=== PATIENT | male | born 1955 | race Caucasian/White ===

== ENCOUNTER 2019-11-06 09:33 | Day surgery (SDC) | payer OTHER ==
[~2019-11-06 09:33] MED LIST: Tobramycin 0.3% Ophth Drops 5 ML Bottle EYELF ONE
[2019-11-06] MEDS ORDERED: Dilation Soln 1 EA EACH EYELF ONE (09:45)
[2019-11-06] MEDS ORDERED: Phenylephrine 10% Ophth Soln 5 ML Bot EYELF ONE (09:45)
[2019-11-06] MEDS ORDERED: Tobramycin 0.3% Ophth Drops 5 ML Bottle EYELF ONE (09:45)
[2019-11-06] MEDS ORDERED: Moxifloxacin 0.5% Ophth Soln 3 ML Bottle EYELF ONE (09:45)
[2019-11-06] MEDS ORDERED: Timolol Maleate 0.5% Ophth Soln 5 ML Bottle EYELF ONE (09:45)
[2019-11-06] MEDS ORDERED: Ondansetron 4 MG/2 ML SDV IVPUSH PRN (09:45)
[2019-11-06] MEDS ORDERED: Tropicamide 1% Ophth Soln 15 ML Bottle EYELF ONE (09:45)
[2019-11-06] MEDS ORDERED: Sodium Chloride 0.9% 10 ML Syringe FLUSH PRN (09:45)
[2019-11-06] MEDS ORDERED: Proparacaine 0.5% Ophth Soln 15 ML Bottle EYELF ONE (09:45)
[2019-11-06] MEDS ORDERED: Povidone-Iodine 5% Sterile Ophth Soln 30 ML Bottle EYELF ONE (09:45)
[2019-11-06] MEDS ORDERED: Phenylephrine 10% Ophth Soln 5 ML Bot EYELF PRN (09:45)
[2019-11-06] MEDS ORDERED: Acetaminophen 325 MG Tab PO PRN (09:45)
[2019-11-06 10:09] VITALS: BP 125/88; PULSE 103
== END 2019-11-06 10:20 | disposition home or self-care (01) ==
LOC: DL.SDS 09:33
PROVIDERS: ATTEND Ophthalmology
DX: H26.9 Unspecified cataract (principal); R05 Cough; R00.0 Tachycardia, unspecified; R09.89 Other specified symptoms and signs involving the circulatory and respiratory systems; Z53.09 Procedure and treatment not carried out because of other contraindication

== ENCOUNTER 2019-11-13 09:41 | Day surgery (SDC) | payer OTHER ==
[~2019-11-13 09:41] MED LIST changes: +Acetaminophen 325 MG Tab PO PRN; +Dilation Soln 1 EA EACH EYELF ONE; +Moxifloxacin 0.5% Ophth Soln 3 ML Bottle EYELF ONE; +Ondansetron 4 MG/2 ML SDV IVPUSH PRN; +Phenylephrine 10% Ophth Soln 5 ML Bot EYELF ONE; +Phenylephrine 10% Ophth Soln 5 ML Bot EYELF PRN; +Povidone-Iodine 5% Sterile Ophth Soln 30 ML Bottle EYELF ONE; +Proparacaine 0.5% Ophth Soln 15 ML Bottle EYELF ONE; +Sodium Chloride 0.9% 10 ML Syringe FLUSH PRN; +Timolol Maleate 0.5% Ophth Soln 5 ML Bottle EYELF ONE; +Tropicamide 1% Ophth Soln 15 ML Bottle EYELF ONE
[2019-11-13] MEDS ORDERED: Dexamethasone 4 MG/ML SDV IV ONE (09:42)
[2019-11-13] MEDS ORDERED: Midazolam 1 MG/ML 2 ML SDV IV ONE (09:42)
[2019-11-13] MEDS ORDERED: Sodium Chloride 0.9% 10 ML Syringe IV ONE (09:42)
[2019-11-13] MEDS ORDERED: Tetracaine HCl/PF 0.5% 4 ML Bottle EYELF ONE (10:34)
[2019-11-13] MEDS ORDERED: Lidocaine 1% 30 ML SDV ONE (10:34)
[2019-11-13] MEDS ORDERED: Diclofenac Sodium 0.1% Ophth Soln 5 ML Bottle EYELF ONE (10:34)
[2019-11-13] MEDS ORDERED: Povidone-Iodine 5% Sterile Ophth Soln 30 ML Bottle EYELF ONE (10:34)
[2019-11-13] MEDS ORDERED: Apraclonidine 0.5% Ophth Soln 5 ML Bot EYELF ONE (10:34)
[2019-11-13] MEDS ORDERED: Dexamethasone/Neomycin/Polymyxin B Ophth Oint 3.5 GM Tube EYELF ONE (10:35)
[2019-11-13] MEDS ORDERED: Chondroitin Sulfate/Hyaluronate Sodium Ophth Inj 0.75 ML Syringe EYELF ONE (10:35)
[2019-11-13] MEDS ORDERED: Vancomycin 500 MG SDV EYELF ONE (10:35)
[2019-11-13] MEDS ORDERED: Balanced Salt Solution Ophth Irrig 500 ML Bottle IOCULAR ONE (10:35)
[2019-11-13 11:43] VITALS: BP 145/94; PULSE 84
--- NOTE | 2019-11-13 14:15 | OR ---
DATE: 11/13/2019 PREOPERATIVE DIAGNOSIS: Visually significant mixed cataract, left eye. POSTOPERATIVE DIAGNOSIS: Visually significant mixed cataract, left eye. PROCEDURE: Extracapsular cataract extraction with intraocular lens implant, left eye. ANESTHESIA: Topical/local MAC. COMPLICATIONS: None. INDICATION: Mr. Mitchell was seen in the clinic. He is unhappy with his vision, noticing a slow progressive change. His examination revealed visually significant mixed cataract. I explained options, offered cataract surgery, and I explained risks including, but not limited to, infection, retinal detachment, loss of vision, need for additional surgery, and risks associated with anesthesia. We discussed implant options. He has requested a monofocal implant. OPERATIVE DESCRIPTION: After informed consent was obtained and the risks, benefits, and alternatives were explained, the patient was brought to the operative suite and topical anesthesia was administered. The patient was then prepped and draped in the sterile fashion and attention was placed on the left eye. A sterile lid speculum was placed into the left eye to allow operative exposure. A full-thickness paracentesis was made in the temporal portion of the operative eye. Preservative-free lidocaine 0.1 mL was injected into the anterior chamber followed by viscoelastic. A full-thickness corneal incision was then made into the anterior chamber. A bent needle cystotome was used to create a small fabiola in the anterior capsule. The capsulorrhexis forceps was then used to create a 360-degree curvilinear capsulorrhexis. The nucleus was then removed using a phacoemulsification handpiece and the remaining cortical material was then removed with irrigation and aspiration handpiece. Following removal of the cortical material, the capsular bag was then inspected and noted to be free of any holes or tears. Viscoelastic was then injected into the capsular bag and the intraocular lens was inserted into the capsular bag. The viscoelastic material was then removed from both the anterior and posterior chambers and from behind the IOL. The lens and capsular bag were then reinspected. The IOL was well centered and the capsular bag intact. The wound and paracentesis sites were inspected and hydrated with balanced saline solution. Both were found to be self- sealing. The intraocular pressure was assessed digitally and found to be within normal range. A good red reflex was noted at the completion of the procedure. No complications occurred during the operation. At the completion of the procedure, Maxitrol, Voltaren, and Iopidine drops were placed into the operative eye. A sterile eye shield was placed over the operative eye and the patient was transported to the postoperative recovery area having tolerated the procedure well. Postoperative instructions were given along with a postoperative appointment. The patient was advised to call with any questions or concerns. [facility] /[id number]
== END 2019-11-13 10:45 | disposition home or self-care (01) ==
LOC: DL.SDS 09:41
PROVIDERS: ATTEND Ophthalmology
DX: H25.812 Combined forms of age-related cataract, left eye (principal); I10 Essential (primary) hypertension; E78.5 Hyperlipidemia, unspecified; F17.210 Nicotine dependence, cigarettes, uncomplicated; D69.6 Thrombocytopenia, unspecified; Z88.1 Allergy status to other antibiotic agents; Z88.8 Allergy status to other drugs, medicaments and biological substances; Z79.899 Other long term (current) drug therapy; Z72.89 Other problems related to lifestyle
CPT/HCPCS: 00142; A9270-GY; J1100; J2001; J2250; J3370; V2632

== ENCOUNTER 2020-10-05 08:32 | Emergency (ER) | payer OTHER ==
[2020-10-05 08:52] VITALS: BP 173/98; PULSE 57
--- NOTE | 2020-10-05 09:34 | EDM.PDOC ---
ED HPI GENERAL MEDICAL PROBLEM - General Chief Complaint: General Stated Complaint: LOWER LEFT LUNG REMOVED, SEVERE PAIN IN AREA Time Seen by Provider: 10/05/20 08:50 Source of Information: Reports: Patient, Family (), RN, RN Notes Reviewed History Limitations: Reports: No Limitations - History of Present Illness INITIAL COMMENTS - FREE TEXT/NARRATIVE: Marga is a 65 y/o male who is POD 27 s/p left lower lung thoracotomy who presents to the ED via personal vehicle with for complaints of left lateral chest tenderness. 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 The patient states he is out of his narcotic medication and acetaminophen is not providing alleviation in pain. The patient's reports he has begun to smoke tobacco and drink large quantities of alcohol again. He denies fever, shaking chills, palpitations, shortness of breath, dyspepsia, abdominal pain, nausea, or vomiting. He states he contacted his cardiothoracic clinic this morning and was told to present to urgent care, however urgent care was full. Left Chest Pain Score (Numeric/FACES): 10 - Related Data Allergies Allergy/AdvReac Type Severity Reaction Status Date / Time levofloxacin [From Levaquin] Allergy Anaphylactic Verified 11/06/19 09:52 Shock atorvastatin [From Lipitor] AdvReac Other Verified 11/12/19 12:49 Home Meds: Home Meds Aspirin [Ecotrin EC] 81 mg PO DAILY 04/06/15 [History] Garlic 400 mg PO DAILY 04/06/15 [History] [place]-3/DHA/Epa/Fish Oil [Fish Oil Dr 500 mg Softgel] 1,000 mg PO DAILY 04/06/15 [History] Cholecalciferol (Vitamin D3) [Vitamin D3] 2,000 mg PO DAILY 11/04/19 [History] Multivitamin with Minerals [Multivitamins with Minerals] 1 tab PO DAILY 11/04/19 [History] Acetaminophen [Tylenol Extra Strength] 500 mg PO DAILY PRN 11/06/19 [History] C,E,Zinc,Copper 11/Ixmni4s/Lut [Ocuvite Adult 50 Plus Softgel] 2 each PO DAILY 11/12/19 [History] Budesonide/Formoterol [Symbicort 160-4.5 MCG] 2 puff PO BID 10/05/20 [History] Simvastatin 20 mg PO DAILY 10/05/20 [History] Past Medical History HEENT History: Reports: Cataract, Impaired Vision Other HEENT History: Wears glasses Cardiovascular History: Reports: High Cholesterol, Hypertension Respiratory History: Reports: SOB Other Respiratory History: SOB with excertion Gastrointestinal History: Reports: Chronic Constipation, Hemorrhoids, Other (See Below) Other Gastrointestinal History: HX OF ELEVATED LIVER ENZYMES Genitourinary History: Reports: Prostate Disorder 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: 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 Musculoskeletal History: Reports: Fracture Other Musculoskeletal History: fx great toes on both feet Neurological History: Reports: None Psychiatric History: Reports: None Endocrine/Metabolic History: Reports: Vitamin D Deficiency Hematologic History: Reports: None Immunologic History: Reports: None Oncologic (Cancer) History: Reports: Prostate Dermatologic History: Reports: Other (See Below) Other Dermatologic History: Peeling bleeding port wine stains - Infectious Disease History Infectious Disease History: Reports: Chicken Pox, Measles, Mumps - Past Surgical History HEENT Surgical History: Reports: None Cardiovascular Surgical History: Reports: None GI Surgical History: Reports: Colonoscopy Male Surgical History: Reports: Prostate Biopsy, Prostatectomy Neurological Surgical History: Reports: None Musculoskeletal Surgical History: Reports: None Social & Family History - Family History Family Medical History: No Pertinent Family History - Caffeine Use Caffeine Use: Reports: Coffee Other Caffeine Use: 1/2 caff coffee couple cups day - Living Situation & Occupation Occupation: Employed ED ROS GENERAL - Review of Systems Review Of Systems: Comprehensive ROS is negative, except as noted in HPI. ED EXAM, GENERAL - Physical Exam Exam: See Below Exam Limited By: No Limitations General Appearance: Alert, No Apparent Distress, Other (Dissheveled appearance) Eye Exam: Bilateral Eye: EOMI, Normal Inspection, PERRL (3mm) Ears: Normal External Exam, Hearing Grossly Normal Nose: Normal Inspection, Normal Mucosa, No Blood Throat/Mouth: Normal Inspection, Normal Oropharynx, Normal Voice, No Airway Compromise Head: Atraumatic, Normocephalic Neck: Normal Inspection, Supple, Non-Tender, Full Range of Motion Respiratory/Chest: No Respiratory Distress, No Accessory Muscle Use, Crackles (To left lower lobe), Other (Dressing in place to left, lateral chest removed by policy writer with closed healing of previous chest tube site; 6cm healed surgical incision to left lateral chest; 1cm healed chest tube incision to left lateral chest). No: Chest Non-Tender, Rales, Rhonchi, Wheezing, Stridor, Retractions Cardiovascular: Normal Peripheral Pulses, Regular Rate, Rhythm, No Edema, No Gallop, No JVD, No Murmur, No Rub Peripheral Pulses: 2+: Radial (L), Radial (R) GI/Abdominal: Normal Bowel Sounds, Soft, Non-Tender, No Distention, No Abnormal Bruit, No Mass, Pelvis Stable (Male) Exam: Deferred Rectal (Males) Exam: Deferred Back Exam: Normal Inspection, Full Range of Motion Extremities: Normal Inspection, Normal Range of Motion, Non-Tender, No Pedal Edema, Normal Capillary Refill Neurological: Alert, Oriented, CN II-XII Intact, Normal Cognition, Normal Gait, Normal Reflexes, No Motor/Sensory Deficits Psychiatric: Normal Affect, Normal Mood Skin Exam: Warm, Dry, Intact, Normal Color, No Rash, Wound/Incision (See above). No: Cyanosis, Ecchymosis, Erythema, Jaundice, Mottled, Pallor, Petechiae Lymphatic: No Adenopathy Course - Vital Signs Last Recorded V/S: Last Vital Signs Temp 97.2 F 10/05/20 08:46 Pulse 57 L 10/05/20 08:46 Resp 14 10/05/20 08:46 BP 173/98 H 10/05/20 08:46 Pulse Ox 96 10/05/20 08:46 - Orders/Labs/Meds Labs: Laboratory Tests 10/05/20 10/05/20 10/05/20 Range/Units 08:56 09:12 09:12 WBC 8.0 (5.0-10.0) 10^3/uL RBC 3.75 L (4.6-6.2) 10^6/uL Hgb 12.5 L (14.0-18.0) g/dL Hct 38.8 L (40.0-54.0) % MCV 103.5 H (80-100) fL MCH 33.3 (27.0-34.0) pg MCHC 32.2 L (33.0-35.0) g/dL Plt Count 256 (150-450) 10^3/uL Neut % (Auto) 69.7 (42.2-75.2) % Lymph % (Auto) 16.8 L (20.5-50.1) % [place] % (Auto) 9.8 H (2-8) % Eos % (Auto) 1.9 (1.0-3.0) % Baso % (Auto) 1.8 H (0.0-1.0) % Add Manual Diff Yes Neutrophils % (Manual) 63 (42-75) % Band Neutrophils % 5 % Lymphocytes % (Manual) 19 L (20-50) % Monocytes % (Manual) 9 H (2-8) % Eosinophils % (Manual) 3 (1-3) % Basophils % (Manual) 1 Sodium 146 H (136-145) mmol/L Potassium 4.5 (3.5-5.1) mmol/L Chloride 106 (98-107) mmol/L Carbon Dioxide 28 (21-32) mmol/L Anion Gap 16.5 H (7-13) mEq/L BUN 15 (7-18) mg/dL Creatinine 0.76 (0.70-1.30) mg/dL Est Cr Clr Drug Dosing 95.00 mL/min Estimated GFR (MDRD) > 60 BUN/Creatinine Ratio 19.7 (No establ ref range) Glucose 85 (70-99) mg/dL Calcium 8.9 (8.5-10.1) mg/dL Total Bilirubin 0.3 (0.2-1.0) mg/dL AST 32 (15-37) U/L ALT 24 (16-63) U/L Alkaline Phosphatase 95 (46-116) U/L Troponin I High Sens 12 (<=76) pg/mL Total Protein 7.0 (6.4-8.2) g/dL Albumin 3.2 L (3.4-5.0) g/dL Globulin 3.8 Albumin/Globulin Ratio 0.84 Urine Color Dark yellow (YELLOW) Urine Appearance Clear (CLEAR) Urine pH 5.5 (5.0-9.0) Ur Specific [place] 1.025 (1.005-1.030) Urine Protein Trace H (NEGATIVE) Urine Glucose (UA) Negative (NEGATIVE) Urine Ketones Negative (NEGATIVE) Urine Occult Blood Negative (NEGATIVE) Urine Nitrite Negative (NEGATIVE) Urine Bilirubin Negative (NEGATIVE) Urine Urobilinogen 0.2 (0.2-1.0) mg/dL Ur Leukocyte Esterase Negative (NEGATIVE) Urine RBC Not seen (0-5) /HPF Urine WBC 0-5 (0-5/HPF) /HPF Ur Epithelial Cells Rare (NOT SEEN) /HPF Urine Bacteria Not seen (0-FEW/HPF) /HPF Urine Mucus Few H (NOT SEEN) /LPF Meds: Medications Discontinued Medications Generic Name Dose Route Start Last Admin Trade Name Freq PRN Reason Stop Dose Admin Tramadol HCl 50 mg 10/05/20 10:02 10/05/20 10:14 Tramadol 50 Mg Tab PO 10/05/20 10:03 50 mg ONETIME ONE Administration - Radiology Interpretation Free Text/Narrative:: [facility] [place] [facility] Final Radiology Report Call: [phone] assistance Online chat: [email or web address] Name: MARGA YUEN Age: 65Years M Date: 10/05/2020 SSN: -- : [id number] Study: CR CHEST 2V Requesting Physician: Miguelina Rizvi Images: 2 Addl Studies: Provided Clinical History: s/p left lower lobe thoracotomy, Left lateral Chest pain Contrast: Contrast Medium: Contrast Amount: Contrast Method: Page 1 of 2 PROCEDURE INFORMATION: Exam: XR Chest Exam date and time: 10/05/2020 9:17 AM Age: 65 years old Clinical indication: Chest wall pain and left-sided; Additional info: S/P left lower lobe thoracotomy, left lateral chest pain TECHNIQUE: Imaging protocol: XR of the chest. Views: 2 views. COMPARISON: CR Ribs 2V w Chest Lt 12/27/2014 11:07 AM FINDINGS: Lungs: There is mild left basilar atelectasis/scarring. The lungs are otherwise clear. Pleural spaces: There is mild new blunting of the left costophrenic angle. The right costophrenic angle is sharp. No pneumothorax is identified. Heart/Mediastinum: Unremarkable. No cardiomegaly. Diaphragm: There is mild new elevation of the left hemidiaphragm. Bones/joints: Degenerative changes involve the spine. There are curvilinear calcifications in the soft tissues of the shoulders bilaterally, suggesting calcific rotator cuff tendinopathy. IMPRESSION: Mild elevation of the left hemidiaphragm, new as compared with 12/27/2014, with mild new blunting of the left costophrenic angle, which could relate to scarring or small pleural effusion. Thank you for allowing us to participate in the care of your patient. Dictated and Authenticated by: Ruperto Bhatia MD 10/05/2020 9:41 AM Central Time ([place] & [place]) - Re-Assessments/Exams Free Text/Narrative Re-Assessment/Exam: 10/05/20 Case discussed with Merissa Simms who states pain is not uncommon for post- thoracotomy patients. Reviewed CXR with no new changes. Recommended a few days of gabapentin and follow up with cardiothoracic clinic. Findings of examination, lab work, imaging and conversation with Merissa Simms reviewed with patient and . Will treat acute pain with gabapentin. Discussed supportive cares for post-thoracotomy pain. Red flag signs and symptoms which would warrant reevaluation reviewed. Patient and verbalized understanding and agreement with the plan of care. Departure - Departure Time of Disposition: 10:29 Disposition: Home, Self-Care 01 Condition: Good Clinical Impression: Postoperative pain - Discharge Information *PRESCRIPTION DRUG MONITORING PROGRAM REVIEWED*: Not Applicable *COPY OF PRESCRIPTION DRUG MONITORING REPORT IN PATIENT LOLA: Not Applicable Instructions: Acute Pain, Adult Referrals: German Souza NP [Primary Care Provider] - Forms: ED Department Discharge Additional Instructions: Rx: gabapentin 1.) Continue with acetaminophen (Tylenol) 1000mg every six hours, as pain persists. 2.) You may apply an [id number] lidocaine patch to the area, as pain pers ists. 3.) Refrain from tobacco and alcohol use. 4.) Follow up with your cardiothoracic team should symptoms persist.
--- NOTE | 2020-10-05 09:41 | CR ---
PROCEDURE INFORMATION: Exam: XR Chest Exam date and time: 10/05/2020 9:17 AM Age: 65 years old Clinical indication: Chest wall pain and left-sided; Additional info: S/P left lower lobe thoracotomy, left lateral chest pain TECHNIQUE: Imaging protocol: XR of the chest. Views: 2 views. COMPARISON: CR Ribs 2V w Chest Lt 12/27/2014 11:07 AM FINDINGS: Lungs: There is mild left basilar atelectasis/scarring. The lungs are otherwise clear. Pleural spaces: There is mild new blunting of the left costophrenic angle. The right costophrenic angle is sharp. No pneumothorax is identified. Heart/Mediastinum: Unremarkable. No cardiomegaly. Diaphragm: There is mild new elevation of the left hemidiaphragm. Bones/joints: Degenerative changes involve the spine. There are curvilinear calcifications in the soft tissues of the shoulders bilaterally, suggesting calcific rotator cuff tendinopathy. IMPRESSION: Mild elevation of the left hemidiaphragm, new as compared with 12/27/2014, with mild new blunting of the left costophrenic angle, which could relate to scarring or small pleural effusion.
[2020-10-05 09:43] LABS: ANION GAP 16.5 mEq/L (7-13); CHLORIDE,CL 106 mmol/L (98-107); SODIUM,NA 146 mmol/L (136-145)
[2020-10-05] MEDS ORDERED: traMADol 50 MG Tab PO ONE (10:02)
== END 2020-10-05 10:37 | disposition home or self-care (01) ==
LOC: DL.ED 08:32
DX: G89.18 Other acute postprocedural pain (principal); R07.89 Other chest pain; E78.00 Pure hypercholesterolemia, unspecified; I10 Essential (primary) hypertension; Z79.899 Other long term (current) drug therapy; Z79.82 Long term (current) use of aspirin; Z88.1 Allergy status to other antibiotic agents; Z88.8 Allergy status to other drugs, medicaments and biological substances; Z90.2 Acquired absence of lung [part of]
CPT/HCPCS: 36415; 71046; 80053; 81001; 84484; 85025; 99285; A9270